=== PATIENT | male | born 1955 | race Caucasian/White ===

== ENCOUNTER → 2018-10-29 | Outpatient (CLI) | payer OTHER, MEDICARE | LOC: CAT 07:18 | PROVIDERS: Internal Medicine Interventional Cardiology | DX: I72.8 Aneurysm of other specified arteries (principal) ==

== ENCOUNTER 2018-11-05 05:36 | Day surgery (SDC) | payer OTHER, MEDICARE ==
[2018-11-05] MEDS ORDERED: LIPITOR10 MG PO (13:52)
[2018-11-05] MEDS ORDERED: MOBIC7.5 MG PO (13:53)
[2018-11-05] MEDS ORDERED: TOPROL XL100 MG PO (13:54)
[2018-11-05] MEDS ORDERED: BENICAR20 MG PO (13:55)
[2018-11-05] MEDS ORDERED: METFORMIN HCL500 MG PO (13:55)
[2018-11-05] MEDS ORDERED: PRILOSEC 20 MG20 MG PO (13:56)
[2018-11-05] MEDS ORDERED: FLONASE 0.05%50 MCG NASAL (13:58)
[2018-11-05] MEDS ORDERED: ASPIR 8181 MG PO (13:59)
[2018-11-05] MEDS ORDERED: ZYRTEC10 M5 PO (13:59)
[2018-11-05] MEDS ORDERED: OMEGA-31000 M1 PO (14:00)
[2018-11-05 14:25] VITALS: BP 150/81
[2018-11-05] MEDS ORDERED: NORCO 5-325 TA1 EACH PO (15:48)
[2018-11-05 15:59] VITALS: BP 150/81
--- NOTE | 2018-11-06 12:08 | O ---
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 PROCEDURES PERFORMED: Excision of right superficial temporal artery aneurysm with normal artery proximally and distally approximately 1 cm segment of normal margin. ANESTHESIA: Local 0.25% Marcaine and 1% lidocaine with epinephrine. SURGEON: Balaji Love MD. ESTIMATED BLOOD LOSS: 5 mL. COMPLICATIONS: None. PROCEDURE NOTE: With the patient in the supine position with the head turned to the left, the temporal area was prepped and draped in sterile fashion. Local anesthetic was then used to anesthetize the skin to gain proximal control. An incision was made just in front of the ear. The artery was seen on ultrasound. This ultrasound was used to candido where the artery was located. After incising through the skin, subcutaneous tissue, the artery was found. The artery is in its normal position. This was dissected free. A vessel loop was placed around it. I then anesthetized the temporal area little by little as I went further out over the aneurysm. The artery was followed initially superiorly and then transversely across the temporal area. There is a posterior artery that branched off. This was preserved. The branch going to the aneurysm was isolated. This was clipped x 2 proximally, one distally and then divided. I did notice that the artery no longer had pulsation in it. The incision was then enlarged towards the end of the aneurysmal part and sharp dissection was used to free the aneurysm part. This was done without difficulty. The artery was preserved and not entered. Distally, the arteries then become normal and small size and slightly tortuous. I removed about a centimeter of normal artery beyond the aneurysm part. That end was clipped x 2 and then divided. Specimens will be sent to pathology. Hemostasis obtained. Irrigation was performed. The [address] [address] OPERATIVE REPORT Name: ANGIE GALVAN [id number] Admission: 11/05/18 ������������������ Attend Phys: Balaji Love MD Discharge: 11/05/18 ������������������ Date of : 51 Report #: [id number] subcutaneous tissue was closed with 4-0 PDS. Skin was closed with 5-0 PDS in running fashion. Dermabond was then used over the incision. The patient tolerated the procedure well and was taken to the preop holding area. The patient will be discharged from the holding area. Instructions will be given. ��������������������������������������������� <ELECTRONICALLY SIGNED> ���������������������������������������� By: Balaji Love MD ��������������������������������������������� 11/06/18 1208 [id number] 26 Balaji Love MD /luis
--- NOTE | 2018-11-08 19:06 | PATH ---
[facility] [place] [address] PATHOLOGY RPT PROCEDURE Name: EBEN GALVAN Room #: DEP [facility]#: [id number] ������������������ Admission: 11/05/18 ������������������ Date of : 51 Discharge: 11/05/18 Report #: [id number] Path Case #: [id number] [facility] Accession Number: [id number] . 01 Material submitted: . artery - RIGHT TEMPORAL ARTERY ANEURYSM. Modifiers: right, temporal . 01 Clinical history: . Temporal artery aneurysm. . 02 Diagnosis: Temporal artery, right temporal artery aneurysm, biopsy: - Markedly dilated and disrupted vessel wall with recanalization, compatible with an aneurysm. 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 - Negative for arteritis. (IUV/db; 11/08/2018) LBQ/11/08/2018 . 02 Electronically signed: . Patience Gonsalves MD, Pathologist NPI- [id number] . 01 Gross description: . Received in formalin labeled "Eben Galvan, right temporal artery aneurysm" is a cylindrical portion of maxwell-white vascular tissue measuring 5.5 cm in length and ranging from 0.2-0.8 cm in diameter. Upon sectioning, the cut surface displays clotted blood material. The specimen is submitted entirely in cassettes A1-A2. ([facility]; 11/07/2018) SYC/SYC . 02 Pathologist provided ICD-10: I72.8 . 02 CPT . 835571 Specimen Comment: A courtesy copy of this report has been sent to Specimen Comment: [phone]. Specimen Comment: Report sent to Performed at: 01 [place] [id number] [address] [id number] MD Lc Walter MD Phone: [phone] Performed at: [address] [id number] [address] [address] PATHOLOGY RPT PROCEDURE Name: EBEN GALVAN Room #: DEP [facility] Tian#: [id number] ������������������ Admission: 11/05/18 ������������������ Date of : 51 Discharge: 11/05/18 Report #: [id number] Path Case #: [id number] MD Patience Gonsalves MD Phone: [phone]
== END 2018-11-05 14:15 | disposition home or self-care (01) ==
LOC: OR 05:36 → TBA 05:36 → OR 14:15
DX: I72.8 Aneurysm of other specified arteries (principal); Z79.82 Long term (current) use of aspirin; Z79.899 Other long term (current) drug therapy; Z98.890 Other specified postprocedural states
CPT/HCPCS: 50010; 50101; 50386; 50398; 54118; 56525; 56526